=== PATIENT | female | born 1945 | race Caucasian/White ===

== ENCOUNTER → 2018-09-08 14:26 | Outpatient (POV) | payer MEDICARE, OTHER, SELFPAY ==
[2018-09-08 14:40] VITALS: BP 153/78; PULSE 70; RESP 18; O2SAT 98; BMI 19.3
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
== END ==
PROVIDERS: PCP Nurse Practitioner Family; Visit Provider Clinical Nurse Specialist Family Health
DX: M79.7 Fibromyalgia (principal)
CPT/HCPCS: 99202

== ENCOUNTER → 2018-11-25 13:49 | Outpatient (CLI) | payer MEDICARE, OTHER, SELFPAY ==
--- NOTE | 2018-11-25 13:56 | XR_ITS ---
PROCEDURE: XR HIP RT 2-3V W/PELVIS CLINICAL INDICATION: BILAT HIP PAIN COMPARISON: No exams were available for comparison FINDINGS: Multiple bilateral rounded calcific densities well-circumscribed are present at the hips and may represent injection granulomas. No fracture or dislocation. No significant degenerative change. There is generalized vascular calcification. There is mild osteoarthritic changes of the SI joints. Small amount of calcification is present along the greater trochanter nonspecific.. IMPRESSION: Nonspecific nonacute findings Dictated by: Eder Garzon MD 11/25/2018 14:44 Electronically signed by Eder Garzon MD in [place] 11/25/2018 14:44
--- NOTE | 2018-11-25 13:56 | XR_ITS ---
PROCEDURE: XR HIP LT 2-3V W/PELVIS CLINICAL INDICATION: BILAT HIP PAIN COMPARISON: No exams were available for comparison FINDINGS: No fracture or dislocation. Multiple injection granulomas are present over the left greater trochanteric region. No significant degenerative change. IMPRESSION: No acute findings. Dictated by: Eder Garzon MD 11/25/2018 16:25 Electronically signed by Eder Garzon MD in [place] 11/25/2018 16:25
== END ==
PROVIDERS: PCP Internal Medicine Adolescent Medicine; Visit Provider Internal Medicine Adolescent Medicine
DX: M25.552 Pain in left hip (principal); M25.551 Pain in right hip
CPT/HCPCS: 73502

== ENCOUNTER → 2018-12-08 11:33 | Outpatient (POV) | payer MEDICARE, OTHER, SELFPAY ==
[2018-12-08 11:46] VITALS: BP 134/67; PULSE 79; RESP 18; O2SAT 94; BMI 18.3
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
== END ==
PROVIDERS: PCP Internal Medicine Adolescent Medicine; Visit Provider Clinical Nurse Specialist Family Health
DX: M50.10 Cervical disc disorder with radiculopathy, unspecified cervical region (principal)
CPT/HCPCS: 99212

== ENCOUNTER → 2019-02-09 14:48 | Outpatient (POV) | payer MEDICARE, OTHER, SELFPAY ==
[2019-02-09 15:36] VITALS: BP 145/89; PULSE 108; RESP 18; O2SAT 98; BMI 15.7
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
== END ==
PROVIDERS: Visit Provider Clinical Nurse Specialist Family Health
DX: R52 Pain, unspecified (principal)
CPT/HCPCS: 99212